=== PATIENT | male | born 1990 | race Caucasian/White ===

== ENCOUNTER 2024-01-03 14:52 | Emergency (ER) | payer BC, SELFPAY ==
[2024-01-03 14:55] VITALS: BP 153/82; PULSE 76; RESP 16; TEMP 36.3; O2SAT 100; BMI 26.7
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
--- NOTE | 2024-01-03 15:18 | CT_ITS ---
We are attempting to reach an attending provider to discuss findings. An addendum with communication details will be sent when the communication is complete. STUDY: CT Spine Cervical W/O Contrast Injection 01/03/2024 4:07 PM REASON FOR EXAM: Male, 33 years old. NECK PAIN neck pain HISTORY: NECK PAIN neck pain TECHNIQUE: High resolution transaxial imaging was performed without intravenous administration of contrast material. Sagittal and coronal images were reconstructed. Individualized dose optimization techniques were used for this CT. COMPARISON: None FINDINGS: Normal craniovertebral junction. Normal anterior atlantoaxial articulation. Normal odontoid process. Normal cervical lordosis. Normal vertebral bodies and posterior osseous elements. C2-3: Normal endplates. Normal disc height and morphology. Normal central canal and intervertebral neuroforamina. C3-4: Normal endplates. Normal disc height and morphology. Normal central canal and intervertebral neuroforamina. C4-5: Normal endplates. Normal disc height and morphology. Normal central canal and intervertebral neuroforamina. C5-6: Normal endplates. Normal disc height and morphology. Normal central canal and intervertebral neuroforamina. C6-7: Fracture right C7 facet. C7-T1: Superior endplate corner fracture of T1. Fracture of the superior endplate corner of T3. Normal visualized soft tissue structures. CT/Spine Cervical without Contras IMPRESSION: (NOT LISTED IN ORDER OF SIGNIFICANCE) Acute fracture of the right C7 facet. Acute corner fracture of T1 and T3. Electronically Signed: Esequiel Dia MD at 16:10 EDT ,
--- NOTE | 2024-01-03 15:18 | CT_ITS ---
EXAM: CT HEAD WITHOUT INTRAVENOUS CONTRAST CLINICAL INDICATION: head trauma TECHNIQUE: Multiple axial images were obtained of the head without intravenous contrast. This CT exam was performed using one or more of the following dose reduction techniques: automated exposure control, adjustment of the mA and/or kV according to patient size, and/or use of iterative reconstruction technique. RADIATION DOSE: CTDIvol = 44.99 mGy, DLP = 796.11 mGy-cm COMPARISON: No relevant prior studies available. FINDINGS: BRAIN AND EXTRA-AXIAL SPACES: Unremarkable. No intra- or extra-axial hemorrhage. No evidence of acute infarct. No intracranial mass or mass effect. There is preservation of the guerra/white matter interface. Posterior fossa structures are unremarkable. Ventricles are appropriate for age. No hydrocephalus. Basal cisterns are patent. BONES/JOINTS: Unremarkable. No discrete lytic or blastic abnormalities. SINUSES: Unremarkable as visualized. Clear. MASTOID AIR CELLS: Unremarkable. Clear. ORBITS: Visualized globes, extraocular muscles, optic nerves and retrobulbar fat appear unremarkable. CT/Brain/Head without Contrast IMPRESSION: Negative head/brain CT without intravenous contrast. Electronically Signed: Esequiel Dia MD at 16:00 EDT ,
[2024-01-03] MEDS: Acetaminophen 500 MG Tablet PO (15:28)
--- NOTE | 2024-01-03 16:13 | CT_ITS ---
STUDY: CT THORACIC SPINE WITHOUT CONTRAST REASON FOR EXAM: Male, 33 years old. back pain TECHNIQUE: The patient was scanned in a multi detector CT scanner. High resolution imaging was performed. Images were obtained from T1 to T12. Sagittal and coronal images were reconstructed. Individualized dose optimization techniques were used for this CT. COMPARISON: None. FINDINGS: Normal visualized cervical spine. Normal kyphosis of the thoracic spine. There is no substantial scoliosis. Normal thoracic vertebrae and endplates. Normal disc spaces heights. C6-7: Fracture right C7 facet. C7-T1: Superior endplate corner fracture of T1. Fracture of the superior endplate corner of T3. The soft tissue structures are unremarkable. CT/Spine Thoracic without Contras IMPRESSION: (NOT LISTED IN ORDER OF SIGNIFICANCE) There are degenerative changes as noted above. Fracture right C7 facet. Superior endplate corner fracture of T1. Fracture of the superior endplate corner of T3. Electronically Signed: Esequiel Dia MD at 17:39 EDT ,
[2024-01-03] MEDS: Morphine 4 MG/ML Syringe IV ×2 (16:28→17:50)
[2024-01-03 16:52] VITALS: BP 129/99; PULSE 91; RESP 18; O2SAT 99
[2024-01-03] MEDS: Lidocaine/Epi/Tetracaine 50 ML 1 APPLIC TOPICAL (17:34)
--- NOTE | 2024-01-03 17:36 | NURSING ---
CALLED FOR KELLY, ETA IS 2HRS, 1900 TO 193
[2024-01-03 17:54] LABS: Absolute Lymphocyte Count 2.94 X10^3/uL (0.83-4.51); Absolute Neutrophil Count 12.3 X10^3/uL (2.0-7.7); Basophil# 0.04 X10^3/uL; Basophil% 0.2 % (0-1); Eosinophil# 0.03 X10^3/uL; Eosinophils% 0.2 % (0-5); Hematocrit 43.4 % (40-54); Hemoglobin 14.6 g/dL (13.0-16.5); Lymphocyte # 2.94 X10^3/ul (0.83-4.51); Lymphocyte % 17.8 % (19-41); Mean Corp Hgb Conc 33.6 g/dL (32-36); Mean Corpuscular Hgb 31.1 pg (27.0-32.0); Mean Corpuscular Volume 92.5 fL (80-94); Mean Platelet Vol. 8.7 fl (6.2-12.0); Monocyte# 1.09 X10^3/uL; Monocyte% 6.6 % (0-10); NRBC Flagged by Analyzer 0 % (0-5); Neutrophil # 12.34 X10^3/uL (2.7-7.7); Neutrophil % 74.7 % (47-70); Platelet Count 284 K/mm3 (150-450); RBC Distribution Width CV 12.1 % (11.6-14.6); RBC Distribution Width SD 41.1 fl (35.1-43.9); Red Blood Count 4.69 M/mm3 (4.6-6.2); White Blood Count 16.5 K/mm3 (4.4-11.0)
[2024-01-03] MEDS: Ondansetron 4 MG/2 ML Vial IV (17:59)
[2024-01-03 18:00] VITALS: BP 113/46; PULSE 85; RESP 13; O2SAT 99
[2024-01-03 18:07] LABS: Anion Gap 8 (5-15); BUN 11 mg/dL (7-18); BUN/Creat Ratio 9.4 RATIO (10-20); Chloride 107 mmol/L (98-107); Creatinine, Serum 1.17 mg/dL (0.70-1.30); EST Glomerular Filtration Rate 77 mL/min (>60); Est Glom Filt Rate - Afr Amer 93 mL/min (>60); Estimated Creatinine Clearance 99.49 ml/min; Glucose 128 mg/dL (74-106); Potassium 3.2 mmol/L (3.5-5.1); Sodium Level 140 mmol/L (136-145)
[2024-01-03 18:27] VITALS: BP 134/73; PULSE 91; RESP 16; TEMP 36.4; O2SAT 99
[2024-01-03] MEDS: 0.9% Normal Saline (1000mL) 1,000 ML 999 ML IV (18:37)
[2024-01-03] MEDS: LORazepam 2 MG/ML Syringe 1 MG IV (18:42)
== END 2024-01-03 19:37 | disposition short-term general hospital (02) ==
PROVIDERS: Emergency Provider Emergency Medicine; Visit Provider Emergency Medicine
DX: S12.600A Unspecified displaced fracture of seventh cervical vertebra, initial encounter for closed fracture (principal); S22.019A Unspecified fracture of first thoracic vertebra, initial encounter for closed fracture; S22.039A Unspecified fracture of third thoracic vertebra, initial encounter for closed fracture; S01.01XA Laceration without foreign body of scalp, initial encounter; W22.09XA Striking against other stationary object, initial encounter; Y93.15 Activity, underwater diving and snorkeling
CPT/HCPCS: 12005; 70450; 72125; 72128; 80048; 85025; 96361; 96374; 96375; 96376; 99285; J7030; A4216; J2405